=== PATIENT | male | born 1970 | race Caucasian/White ===

== ENCOUNTER 2016-09-26 10:48 | Emergency (ER) | payer OTHER ==
[~2016-09-26] VITALS: Wt 70.0 kg
[~2016-09-26 10:48] MED LIST: FLONASE NASAL; OMEPRAZOLE; PENTOXIFYLLINE; SIMVASTATIN PO; SINGULAIR PO
[2016-09-26] MEDS ORDERED: ASPIRIN 325 MG TAB PO STA (11:28)
--- NOTE | 2016-09-26 11:54 | RADRPT ---
PROCEDURE: XR Chest. CLINICAL INDICATION: Chest Pain. TECHNIQUE: Single frontal chest x-ray. COMPARISON: None. FINDINGS: The lungs are clear of acute infiltrates, edema, effusions, or masses.. The cardiomediastinal silho uette is unremarkable. The osseous structures are intact. IMPRESSION: No acute cardiopulmonary disease. RPTAT: GG .Jordan Darnell MD, MD Date Time Electronically viewed and signed by .Jordan Darnell MD, MD on 09/26/2016 11:54 .L/
[2016-09-26 11:56] LABS: WHITE BLOOD COUNT 12.2 10^3/ul (4.8-10.8)
[2016-09-26 11:57] LABS: BASOPHILS % 0.2 % (0.0-2.0); EOSINOPHILS # 0.2 10^3/ul (0.0-0.5); EOSINOPHILS % 1.3 % (0.0-7.0); HEMATOCRIT 46.5 % (42.0-52.0); HEMOGLOBIN 15.4 g/dl (14.0-18.0); LYMPHOCYTES # 1.8 10^3/ul (0.8-2.9); LYMPHOCYTES % 14.7 % (15.0-51.0); MEAN CORPUSCULAR HEMOGLOBIN 29.3 pg (29.0-33.0); MEAN CORPUSCULAR HGB CONC 33.1 g/dl (32.0-37.0); MEAN CORPUSCULAR VOLUME 88.4 fl (82.0-101.0); MONOCYTE # 0.8 10^3/ul (0.3-0.9); MONOCYTES % 6.8 % (0.0-11.0); NEUTROPHIL # 9.3 10^3/ul (1.6-7.5); NEUTROPHILS % 76.5 % (39.0-77.0); PLATELET COUNT 277 10^3/UL (140-415); RED BLOOD COUNT 5.26 10^6/ul (4.70-6.10); RED CELL DISTRIBUTION WIDTH 13.7 % (11.5-14.5)
[2016-09-26 12:10] LABS: INR 0.89; PARTIAL THROMBOPLASTIN TIME 29.6 Sec (25.0-35.0); PT RATIO 0.9
[2016-09-26 12:15] LABS: ANION GAP 16 (8-16); BLOOD UREA NITROGEN 19 mg/dl (7-20); CALCIUM 9.5 mg/dl (8.4-10.2); CARBON DIOXIDE 30 mmol/L (21-31); CHLORIDE 102 mmol/L (97-110); CREATININE 0.88 mg/dl (0.61-1.24); GLUCOSE 96 mg/dl (70-220); POTASSIUM 3.9 mmol/L (3.5-5.1); SODIUM 144 mmol/L (135-144)
--- NOTE | 2016-09-26 12:24 | ERD ---
ER Documentation Chief Complaint Date/Time DATE: 09/26/16 TIME: 12:21 Chief Complaint ON AND OFF LEFT SHOULDER PAIN, ARM PAIN, CHEST WALL PAIN X3 DAYS HPI This is a 45-year-old male history of smoking and family history of cardiac disease who presents to the emergency room with multiple complaints including palpitations, chest wall pain and left shoulder pain. He describes intermittent episodes lasting 5-10 seconds for the past 3 days. The patient also notes increasing social stressors and anxiety over this timeframe. He denies any exertional symptoms and no significant exacerbating symptoms. No fevers chills or cough, no pleuritic pain, no lower extremity swelling, travel, surgery or immobilization. ROS All systems reviewed and are negative except as per history of present illness. Medications Home Meds Reported Medications Finasteride* (Finasteride*) 5 Mg Tablet, 5 MG PO DAILY, TAB 09/26/16 Montelukast Sodium* (Singulair*) 10 Mg Tablet, 10 MG PO QHS, #30 TAB 09/26/16 Simvastatin* (Zocor*) 10 Mg Tablet, 10 MG PO QHS, #30 TAB 09/26/16 Pantoprazole* (Protonix*) 40 Mg Tablet.dr, 40 MG PO DAILY, TAB 09/26/16 Discontinued Reported Medications [Pentoxifylline] No Conflict Check, DAILY 05/23/14 [Flonase] No Conflict Check, NASAL DAILY 05/23/14 [Singulair] No Conflict Check, MG PO DAILY 05/23/14 [Omeprazole] No Conflict Check, MG DAILY 05/23/14 [Simvastatin] No Conflict Check, MG PO DAILY 05/23/14 Allergies Allergies: Coded Allergies: Penicillins (Verified Allergy, Unknown, RASH, 09/26/16) PMhx/Soc History of Surgery: Yes (umbilical and inguinal hernia repair.) Anesthesia Reaction: No Hx Neurological Disorder: No Hx Respiratory Disorders: No Hx Cardiac Disorders: Yes (HLP) Hx Psychiatric Problems: No Hx Miscellaneous Medical Probl: Yes (Gerd) Hx Alcohol Use: No Hx Substance Use: No Hx Tobacco Use: Yes Smoking Status: Current every day smoker FmHx Family History: No diabetes Physical Exam Vitals Vital Signs Date Time Temp Pulse Resp B/P Pulse Ox O2 Delivery O2 Flow Rate FiO2 09/26/16 12:44 98.9 97 18 138/84 100 Room Air 09/26/16 10:52 99.1 102 18 149/80 100 Physical Exam General: Well developed, well nourished, no acute distress Head: Normocephalic, atraumatic. Eyes: Pupils equally reactive, EOM intact ENT: Moist mucous membranes Neck: Supple, no lymphadenopathy Respiratory: Lungs clear bilaterally, no distress Cardiovascular: RRR, no murmurs, rubs, or gallops Abdominal: Soft, non-tender, non-distended, no peritoneal signs : Deferred MSK: No edema, no unilateral swelling, 5/5 strength Neurologic: Alert and oriented, moving all extremities, normal speech, no focal weakness, no cerebellar signs Skin: No rash Psych: Normal mood Result Diagram: 09/26/16 1130 09/26/16 1130 Results 24 hrs Laboratory Tests Test 09/26/16 11:30 White Blood Count 12.210^3/ul Red Blood Count 5.2610^6/ul Hemoglobin 15.4g/dl Hematocrit 46.5% Mean Corpuscular Volume 88.4fl Mean Corpuscular Hemoglobin 29.3pg Mean Corpuscular Hemoglobin Concent 33.1g/dl Red Cell Distribution Width 13.7% Platelet Count 79393^3/UL Mean Platelet Volume 9.0fl Neutrophils % 76.5% Lymphocytes % 14.7% Monocytes % 6.8% Eosinophils % 1.3% Basophils % 0.2% Nucleated Red Blood Cells % 0.0/100WBC Neutrophils # 9.310^3/ul Lymphocytes # 1.810^3/ul Monocytes # 0.810^3/ul Eosinophils # 0.210^3/ul Basophils # 0.010^3/ul Nucleated Red Blood Cells # 0.010^3/ul Prothrombin Time 12.0Sec Prothrombin Time Ratio 0.9 INR International Normalized Ratio 0.89 Activated Partial Thromboplast Time 29.6Sec Sodium Level 144mmol/L Potassium Level 3.9mmol/L Chloride Level 102mmol/L Carbon Dioxide Level 30mmol/L Anion Gap 16 Blood Urea Nitrogen 19mg/dl Creatinine 0.88mg/dl Glucose Level 96mg/dl Calcium Level 9.5mg/dl Troponin I < 0.012ng/ml Current Medications Medications (Trade) Dose Ordered Sig/Robbie Route PRN Reason Start Time Stop Time Status Last Admin Dose Admin Aspirin (Aspirin) 243 mg ONCE STAT PO 09/26/16 11:28 09/26/16 11:29 DC 09/26/16 11:40 Procedures/MDM EKG, MONITORS, & DIAGNOSTIC IMAGING: EKG: I reviewed and interpreted a 12-lead EKG. Rhythm: Normal sinus rhythm Ectopy: None Intervals: No abnormalities ST segments: No elevations or depressions T waves: No contiguous inversions Repeat EKG: EKG: I reviewed and interpreted a 12-lead EKG. Rhythm: Normal sinus rhythm Ectopy: None Intervals: No abnormalities ST segments: No elevations or depressions T waves: No contiguous inversions Chest x-ray: I reviewed and interpreted a 1 view of the chest Mediastinum: No enlargement Cardiac silhouette: No cardiomegaly Airspace: Clear lung rocha bilaterally without evidence of pneumothorax Bones: No evidence of fracture LAB INTERPRETATION: Nonspecific leukocytosis of 12, troponin negative MEDICAL DECISION MAKING: The patient's history, physical exam and clinical presentation is concerning for possible cardiogenic etiology and acute coronary syndrome. However, given the predominance of anxiety, atypical presentation I believe this is more consistent with anxiety related symptoms. Regardless, the patient does have risk factors including family history and smoking. Based on the patient's clinical exam and history and risk factors, I have a much lower clinical concern for pulmonary embolism, acute aortic dissection, pneumothorax, pneumonia, cardiac tamponade HEART Score: 3 MACE Rate: 1.7% Shared Decision Making: We had a conversation regarding risk stratification, MACE rate, and the risks, benefits, alternatives of disposition planning options. Disposition planning: I recommended inpatient hospitalization for serial troponin, echocardiogram and risk stratification as well as provocative testing. However, the patient feels strongly about going home. He understands the risks involved including the risk of missed adverse cardiac event rate. The patient has capacity and would like to be discharged after single troponin. ER COURSE: Aspirin completed, patient chest pain-free. EKG, serial, negative for in the emergency room. The patient continues to be asymptomatic. Troponin negative. Serial EKGs unchanged. Patient understands risks involved with discharge. Patient to follow-up with primary care physician. I kept the patient and/or family informed of laboratory and diagnostic imaging results throughout the emergency room course. DISPOSITION PLAN: We discussed follow up with the patient's primary care doctor within 24 to 48 hours as needed. We also discussed return to the emergency room for worsening symptoms or worsening condition. Outpatient referral: Primary care and cardiology follow-up as an outpatient Discharge Medications: None required, continue to take daily aspirin Departure Diagnosis: Primary Impression: Atypical chest pain Condition: Stable WILLA MALONE MD Sep 26, 2016 12:24
[2016-09-26 12:27] LABS: TROPONIN-I < 0.012 ng/ml (0.00-0.12)
[2016-09-26] MEDS ORDERED: FINA5TAB4 PO (12:37)
[2016-09-26] MEDS ORDERED: SIMV10TA PO (12:37)
[2016-09-26] MEDS ORDERED: MONT10TA21 PO (12:37)
[2016-09-26] MEDS ORDERED: PANT40TA3 PO (12:37)
[2016-09-26 13:21] VITALS: BP 113/73; PULSE 85; RESP 18; TEMP 98.2
== END 2016-09-26 13:41 | disposition home or self-care (01) ==
LOC: E/R 10:48
DX: R07.89 Other chest pain (principal); F17.210 Nicotine dependence, cigarettes, uncomplicated
CPT/HCPCS: 36415; 71010; 80048; 84484; 85025; 85610; 85730; 93005; Z7502; Z7610

== ENCOUNTER 2018-05-14 09:41 | Emergency (ER) | payer OTHER ==
[~2018-05-14] VITALS: Ht 182.9 cm; Wt 73.4 kg
[~2018-05-14 09:41] MED LIST changes: +FINA5TAB4 PO; -FLONASE NASAL; +MONT10TA21 PO; -OMEPRAZOLE; +PANT40TA3 PO; -PENTOXIFYLLINE; +SIMV10TA PO; -SIMVASTATIN PO; -SINGULAIR PO
[2018-05-14 09:48] VITALS: Ht 182.9 cm; Wt 73.4 kg
[2018-05-14] MEDS ORDERED: ASPIRIN 81 MG TAB PO STA (10:22)
--- NOTE | 2018-05-14 10:38 | ERD ---
ER Documentation Chief Complaint Chief Complaint Complains of chest pain with chest tightness since this am HPI Very pleasant 47-year-old gentleman with a history of smoking and a family history of coronary disease who presents to the emergency room with chest tightness. Patient states that over the past 24 hours he has noted some chest tightness, worsening cramping in the bilateral upper extremities. He states that he slept on his arm awkwardly last night woke up with numbness of the hand that rapidly improved with moving his arm. Patient denies any exertional symptoms diaphoresis or nausea. No recent fevers chills cough. He denies any significant pleuritic pain, calf swelling or history of DVT. No recent travel, immobilization or surgeries. Patient has minimal symptoms currently. ROS All systems reviewed and are negative except as per history of present illness. Medications Home Meds Reported Medications Pantoprazole* (Pantoprazole*) 40 Mg Tablet.dr, 40 MG PO AC BREAKFAST, TAB 05/14/18 Simvastatin* (Zocor*) 10 Mg Tablet, 10 MG PO QHS, #30 TAB 05/14/18 Finasteride* (Finasteride*) 5 Mg Tablet, 5 MG PO DAILY, TAB 05/14/18 Discontinued Reported Medications Finasteride* (Finasteride*) 5 Mg Tablet, 5 MG PO DAILY, TAB 09/26/16 Montelukast Sodium* (Singulair*) 10 Mg Tablet, 10 MG PO QHS, #30 TAB 09/26/16 Simvastatin* (Zocor*) 10 Mg Tablet, 10 MG PO QHS, #30 TAB 09/26/16 Pantoprazole* (Protonix*) 40 Mg Tablet.dr, 40 MG PO DAILY, TAB 09/26/16 Allergies Allergies: Coded Allergies: Penicillins (Verified Allergy, Unknown, RASH, 05/14/18) PMhx/Soc History of Surgery: Yes (umbilical and inguinal hernia repair.) Anesthesia Reaction: No Hx Neurological Disorder: No Hx Respiratory Disorders: No Hx Cardiac Disorders: Yes (HLP) Hx Psychiatric Problems: No Hx Miscellaneous Medical Probl: Yes (Gerd) Hx Alcohol Use: No Hx Substance Use: No Hx Tobacco Use: Yes Smoking Status: Never smoker FmHx Family History: coronary disease; No diabetes Physical Exam Vitals Vital Signs Date Temp Pulse Resp B/P (MAP) Pulse Ox O2 O2 Flow FiO2 Time Delivery Rate 3/28/19 80 18 138/88 98 Room Air 12:45 (105) 05/14/18 Nasal 2 10:39 Cannula 05/14/18 97.7 77 20 114/73 20 09:48 (87) Physical Exam General: Well developed, well nourished, no acute distress Head: Normocephalic, atraumatic. Eyes: Pupils equally reactive, EOM intact ENT: Moist mucous membranes Neck: Supple, no lymphadenopathy Respiratory: Lungs clear bilaterally, no distress Cardiovascular: RRR, no murmurs, rubs, or gallops Abdominal: Soft, non-tender, non-distended, no peritoneal signs : Deferred MSK: No edema, no unilateral swelling, 5/5 strength Neurologic: Alert and oriented, moving all extremities, normal speech, no focal weakness, no cerebellar signs Skin: No rash Psych: Normal mood Result Diagram: 05/14/18 1037 05/14/18 1037 Results 24 hrs Laboratory Tests Test 05/14/18 10:37 05/14/18 13:25 White Blood Count 5.6 10^3/ul Red Blood Count 5.34 10^6/ul Hemoglobin 15.4 g/dl Hematocrit 46.3 % Mean Corpuscular Volume 86.7 fl Mean Corpuscular Hemoglobin 28.8 pg Mean Corpuscular Hemoglobin Concent 33.3 g/dl Red Cell Distribution Width 12.4 % Platelet Count 277 10^3/UL Mean Platelet Volume 8.9 fl Immature Granulocytes % 0.400 % Neutrophils % 57.7 % Lymphocytes % 30.3 % Monocytes % 8.8 % Eosinophils % 2.3 % Basophils % 0.5 % Nucleated Red Blood Cells % 0.0 /100WBC Immature Granulocytes # 0.020 10^3/ul Neutrophils # 3.2 10^3/ul Lymphocytes # 1.7 10^3/ul Monocytes # 0.5 10^3/ul Eosinophils # 0.1 10^3/ul Basophils # 0.0 10^3/ul Nucleated Red Blood Cells # 0.0 10^3/ul Sodium Level 142 mmol/L Potassium Level 4.5 mmol/L Chloride Level 104 mmol/L Carbon Dioxide Level 28 mmol/L Anion Gap 10 Blood Urea Nitrogen 20 mg/dl Creatinine 0.92 mg/dl Est Glomerular Filtrat Rate mL/min > 60 mL/min Glucose Level 87 mg/dl Calcium Level 9.4 mg/dl Troponin I < 0.012 ng/ml < 0.012 ng/ml Current Medications Medications Dose Sig/Robbie Start Time Status Last (Trade) Ordered Route PRN Stop Time Admin Dose Reason Admin Aspirin 162 mg ONCE STAT 05/14/18 DC 05/14/18 (Aspirin) PO 10:22 10:45 05/14/18 10:23 Procedures/MDM EKG, MONITORS, & DIAGNOSTIC IMAGING: EKG: I reviewed and interpreted a 12-lead EKG. Rhythm: Normal sinus rhythm ST Changes: No contiguous ST segment elevations T waves: No contiguous T wave inversions Impression: No evidence of acute cardiac ischemia Repeat EKG: EKG: I reviewed and interpreted a 12-lead EKG. Rhythm: Normal sinus rhythm ST Changes: No contiguous ST segment elevations T waves: No contiguous T wave inversions Impression: No evidence of acute cardiac ischemia Chest x-ray: I reviewed and interpreted a 1 view of the chest Mediastinum: No enlargement Cardiac silhouette: No cardiomegaly Airspace: Clear lung rocha bilaterally without evidence of pneumothorax Bones: No evidence of fracture PROCEDURES: None LAB INTERPRETATION: * Trop neg x 2 MEDICAL DECISION MAKING: The patient's history, physical exam and clinical presentation is very nonspecific and unlikely secondary to acute coronary syndrome. With the patient does have a couple of risk factors he is otherwise healthy. He denies any exertional symptoms. His chest discomfort again is very nonspecific. The patient meets the PERC RULE out criteria. Thus, less than 2% risk of pulmonary embolism with better alternative diagnosis. No indication for d-dimer or CT pulmonary angiogram at this time. Based on the patient's clinical exam and history and risk factors, I have a much lower clinical concern for pulmonary embolism, acute aortic dissection, pneumothorax, pneumonia, cardiac tamponade HEART Score: 2 MACE Rate: Less than 1.7% Shared Decision Making: We had a conversation regarding risk stratification, MACE rate, and the risks, benefits, alternatives of disposition planning options. Disposition planning: Serial troponin. We did discuss possible inpatient hospitalization versus discharge after single troponin. He would like to stay for the serial 3-hour troponin which would be reasonable based on his risk stratification. ER COURSE: * Aspirin provided * Patient remains asymptomatic. Troponin negative x2. Based on risk stratification as documented above the patient is safe for discharge. Return precautions were discussed and understood. CONSULTATION: None DISPOSITION PLAN: The patient does not have an identifiable emergent medical condition that warrants inpatient hospitalization at this time. The patient is deemed safe for discharge with outpatient follow-up. We discussed follow up with the patient's primary care doctor within 24 to 48 hours as needed. We also discussed return to the emergency room for worsening symptoms or worsening condition. Outpatient referral: Cardiology as needed Departure Diagnosis: Primary Impression: Chest pain Chest pain type: unspecified Qualified Codes: R07.9 - Chest pain, unspecified Condition: Stable WILLA MALONE MD May 14, 2018 10:38
[2018-05-14] MEDS ORDERED: FINA5TAB4 PO (11:35)
[2018-05-14] MEDS ORDERED: SIMV10TA PO (11:36)
[2018-05-14] MEDS ORDERED: PANT40TA4 PO (11:36)
[2018-05-14 12:45] VITALS: BP 138/88; PULSE 80; RESP 18
== END 2018-05-14 14:46 | disposition home or self-care (01) ==
LOC: E/R 09:41
DX: R07.89 Other chest pain (principal); Z87.891 Personal history of nicotine dependence
CPT/HCPCS: 36415; 71045; 80048; 84484; 85025; 93005; Z7502